=== PATIENT | female | born 1995 | race Two or more races ===

== ENCOUNTER 2017-02-21 07:00 | Inpatient (IN) | payer MEDICAID ==
[2017-02-21] MEDS ORDERED: Oxytocin 10 Units/1 ML SDV IM ONE (07:45)
[2017-02-21] MEDS ORDERED: Oxytocin 10 Units/1 ML SDV ONE (07:54)
[2017-02-21] MEDS ORDERED: Mineral Oil 10 ML Bottle ONE (07:54)
[2017-02-21] MEDS ORDERED: Lidocaine 1% 50 ML MDV ONE (07:55)
[2017-02-21] MEDS ORDERED: Naloxone 0.4 MG/ML SDV ONE (07:55)
[2017-02-21] MEDS ORDERED: Sodium Chloride 0.9% 10 ML Syringe FLUSH PRN (08:39)
[2017-02-21] MEDS ORDERED: Witch Hazel Medicated Pads 100/Jar TOP PRN (08:46)
[2017-02-21] MEDS ORDERED: Lanolin 100% Cream 40 GM Tube TOP PRN (08:46)
[2017-02-21] MEDS ORDERED: Acetaminophen/HYDROcodone 325-5 MG Tab PO PRN (08:46)
--- NOTE | 2017-02-21 08:58 | PCM.LDHP ---
L&D History of Present Illness - General Date of Service: 02/21/17 Admit Problem/Dx: Patient Status Order with Admit Dx/Problem 02/21/17 07:35 Patient Status [ADT] Routine 02/21/17 08:05 Patient Status [ADT] Routine Admission Diagnosis/Problem Admission Diagnosis/Problem Source of Information: Patient History Limitations: Reports: No limitations - History of Present Illness Improves with: Reports: None Worsens with: Reports: None Associated Symptoms: Reports: N - Related Data Allergies/Adverse Reactions: Allergies Allergy/AdvReac Type Severity Reaction Status Date / Time No Known Allergies Allergy Verified 02/20/17 13:01 Home Medications: Home Meds Acetaminophen [Tylenol] 650 mg PO Q6HR PRN 02/21/17 [History] H&P Review of Systems - Review of Systems: Review Of Systems: See Below General: Reports: fever, chills HEENT: Reports: no symptoms Pulmonary: Reports: No Symptoms Cardiovascular: Reports: no symptoms Gastrointestinal: Reports: Diarrhea Genitourinary: Reports: no symptoms Musculoskeletal: Reports: no symptoms Skin: Reports: no symptoms Psychiatric: Reports: no symptoms Neurological: Reports: No Symptoms Hematologic/Lymphatic: Reports: no symptoms Immunologic: Reports: no symptoms L&D Exam - Exam Exam: See Below - Vital Signs Vital Signs: Last Vital Signs Temp 37.1 C 02/21/17 07:09 Pulse 82 02/21/17 07:09 Resp 20 02/21/17 07:09 BP 123/72 02/21/17 07:09 Pulse Ox - OB Specific Contraction Intensity: Mild Presentation: both hand compound - Exam General: alert, oriented HEENT: PERRLA, Conjunctiva clear, EACs clear, EOMI, Hearing intact, Mucosa moist & pink, Nares patent, Normal nasal septum, Posterior pharynx clear, Pupils equal, Pupils reactive, TMs clear Neck: supple, trachea midline Lungs: Clear to auscultation, Normal respiratory effort Cardiovascular: regular rate, regular rhythm Abdomen: normal bowel sounds, soft Genitourinary: Normal external exam, Enlarged uterus Back Exam: normal inspection, full range of motion Extremities: normal inspection Skin: warm, dry, intact Neurological: cranial nerves intact, reflexes equal bilateral DTR: 2+: patella (L), patella (R) Psychiatric: alert, normal affect, normal mood - Patient Data Lab Results last 24 hrs: Laboratory Results - last 24 hr 02/21/17 Range/Units 07:42 WBC 7.9 (4.5-11.0) K/uL RBC 3.93 (3.30-5.50) M/uL Hgb 11.4 L (12.0-15.0) g/dL Hct 35.0 L (36.0-48.0) % MCV 89 (80-98) fL MCH 29 (27-31) pg MCHC 33 (32-36) % Plt Count 209 (150-400) K/uL Result Diagrams: 02/21/17 07:42 - Problem List (1) Fever SNOMED Code(s): 143058062 ICD Code: R50.9 - FEVER, UNSPECIFIED Status: Acute Current Visit: No Qualifiers: Fever type: fever during labor (maternal) Qualified Code(s): O75.2 - Pyrexia during labor, not elsewhere classified (2) Precipitous delivery SNOMED Code(s): 909245241 ICD Code: O62.3 - PRECIPITATE LABOR Status: Acute Current Visit: No (3) SNOMED Code(s): 12576209 ICD Code: Z33.1 - STATE, INCIDENTAL Status: Acute Current Visit : No Qualifiers: Weeks of gestation: 39 weeks Qualified Code(s): Z3A.39 - 39 weeks gestation of Problem List Initiated/Reviewed/Updated: Yes Orders Last 24hrs: Active Orders 24 hr Category Date Time Status Patient Status [ADT] Routine ADT 02/21/17 07:35 Active Patient Status [ADT] Routine ADT 02/21/17 08:05 Ordered Ambulate [RC] PER UNIT ROUTINE Care 02/21/17 08:46 Ordered Communication Order [RC] ASDIRECTED Care 02/21/17 08:39 Ordered Heart Tones [RC] PER UNIT ROUTINE Care 02/21/17 08:39 Ordered Intake and Output [RC] PRN Care 02/21/17 08:39 Ordered May Shower [RC] ASDIRECTED Care 02/21/17 08:46 Ordered Notify Provider Vital Signs [RC] PRN Care 02/21/17 07:35 Ordered Notify Provider [RC] PRN Care 02/21/17 08:39 Ordered OB Check [OM.PC] Click to Edit Care 02/21/17 07:09 Ordered VTE/DVT Education [RC] Click to Edit Care 02/21/17 08:48 Ordered Vital Signs [RC] PER UNIT ROUTINE Care 02/21/17 08:39 Ordered Vital Signs [RC] PFP Care 02/21/17 08:46 Ordered CBC WITH AUTO DIFF [HEME] Routine Lab 02/22/17 06:00 Ordered Acetaminophen [Tylenol] Med 02/21/17 08:46 Ordered 650 mg PO Q4H PRN Acetaminophen/HYDROcodone [[place] 325-5 MG] Med 02/21/17 08:46 Ordered 1 tab PO Q4H PRN Docusate Sodium [Colace] Med 02/21/17 08:46 Ordered 100 mg PO BID PRN Ibuprofen [Motrin] Med 02/21/17 08:46 Ordered 600 mg PO Q6H PRN Lanolin [Lansinoh HPA] Med 02/21/17 08:46 Ordered 1 gm TOP ASDIRECTED PRN Oxytocin [Pitocin] Med 02/21/17 07:45 Once 10 unit IM ONETIME ONE Sodium Chloride 0.9% [Saline Flush] Med 02/21/17 08:39 Ordered 10 ml FLUSH ASDIRECTED PRN [place] [Tucks] Med 02/21/17 08:46 Ordered 1 pad TOP ASDIRECTED PRN Assess Lochia [WOMSER] Per Unit Routine Oth 02/21/17 08:46 Ordered DVT/VTE Prophylaxis Reflex [OM.PC] Routine Oth 02/21/17 08:46 Ordered Ice Therapy [OM.PC] Per Unit Routine Oth 02/21/17 08:47 Ordered Perineal Care [OM.PC] Per Unit Routine Oth 02/21/17 08:47 Ordered Saline Lock Insert [OM.PC] Routine Oth 02/21/17 08:39 Ordered Sitz Bath [OM.PC] Per Unit Routine Oth 02/21/17 08:47 Ordered Resuscitation Status Routine Resus Stat 02/21/17 08:39 Ordered Medication Orders Acetaminophen (Tylenol) 650 mg PO Q4H PRN PRN Reason: mild pain or fever Hydrocodone Bitart/Acetaminophen ([place] 325-5 Mg) 1 tab PO Q4H PRN PRN Reason: Pain (moderate 4-6) Docusate Sodium (Colace) 100 mg PO BID PRN PRN Reason: Constipation Emollient Ointment (Lansinoh Hpa) 1 gm TOP ASDIRECTED PRN PRN Reason: Sore Nipples Ibuprofen (Motrin) 600 mg PO Q6H PRN PRN Reason: mild pain or fever Oxytocin (Pitocin) 10 unit IM ONETIME ONE Stop: 02/21/17 07:46 Sodium Chloride (Saline Flush) 10 ml FLUSH ASDIRECTED PRN PRN Reason: Keep Vein Open Witch [place] (Tucks) 1 pad TOP ASDIRECTED PRN PRN Reason: Hemorrhoids Assessment/Plan Comment:: 02/21/2017 21 yo G2 now P1 came in in active labor SVE by nurse was 7-8/100/+1 bulging bag GBS negative B positive Rubella Immune RPR nonreactive Hep B negative/HIV negative Pain well controlled with position and breathing FHT category one Wero strong and regular Plan- Continue to monitor labor and FHTs Plan for a vaginal delivery
--- NOTE | 2017-02-21 09:06 | PCM.DEL ---
L & D Note - General Info Date of Service: 02/21/17 Mother's Due Date: 02/28/17 - Delivery Note Labor: spontaneous Delivery Outcome: Livebirth Infant Delivery Method: Spontaneous Vaginal Delivery Infant Delivery Mode: Spontaneous Presentation: Right Occiput Posterior (ROP) (with both hands compound) Nuchal cord: none Anesthesia Type: None Episiotomy Type: None Laceration: none Placenta: intact, spontaneous Cord: 3 vessels Estimated blood loss: 250 Resuscitation needed: No : bulb syringe, stimulated, warmed, blanket used Second Stage Interventions: Reports: Encouragement Given, Pushing Effectively Delivery Comments (Free Text/Narrative):: 02/21/2017 21 yo G2 now P2 at 39 weeks gestation delivered a viable male @ 0805 normal spontaneous vaginal delivery in ROP with double hand compound presentation placed on prewarmed blanket on abdomen and noted to have a short umbilical cord, cord double clamped and cut Infant then stimulated, dried, and bulb suctioned APGARS-9/9/10 Weight 7lbs 1.1oz, Height 19.9inches Placenta spontaneously delivered intact, perineum intact-does have a skin tag noted on right side of labia No lacerations to cervix, vagina, rectum, or perineum EBL-250ml Mother stable in labor room with infant skin to skin and stable - General Info Date of Service: 02/21/17 Admission Dx/Problem (Free Text): Patient Status Order with Admit Dx/Problem 02/21/17 07:35 Patient Status [ADT] Routine 02/21/17 08:05 Patient Status [ADT] Routine Admission Diagnosis/Problem Admission Diagnosis/Problem Functional Status: Reports: pain controlled - Review of Systems General: Reports: Fever, Fatigue, Chills HEENT: Reports: no symptoms Pulmonary: Reports: no symptoms Cardiovascular: Reports: No Symptoms Gastrointestinal: Reports: Diarrhea Genitourinary: Reports: no symptoms Musculoskeletal: Reports: no symptoms Skin: Reports: no symptoms Neurological: Reports: No Symptoms Psychiatric: Reports: no symptoms - Patient Data Vitals - most recent: Last Vital Signs Temp 37.1 C 02/21/17 07:09 Pulse 82 02/21/17 07:09 Resp 20 02/21/17 07:09 BP 123/72 02/21/17 07:09 Pulse Ox Lab Results last 24 hrs: Laboratory Results - last 24 hr 02/21/17 Range/Units 07:42 WBC 7.9 (4.5-11.0) K/uL RBC 3.93 (3.30-5.50) M/uL Hgb 11.4 L (12.0-15.0) g/dL Hct 35.0 L (36.0-48.0) % MCV 89 (80-98) fL MCH 29 (27-31) pg MCHC 33 (32-36) % Plt Count 209 (150-400) K/uL Med Orders - Current: Current Medications Acetaminophen (Tylenol) 650 mg PO Q4H PRN PRN Reason: mild pain or fever Hydrocodone Bitart/Acetaminophen ([place] 325-5 Mg) 1 tab PO Q4H PRN PRN Reason: Pain (moderate 4-6) Docusate Sodium (Colace) 100 mg PO BID PRN PRN Reason: Constipation Emollient Ointment (Lansinoh Hpa) 0 gm TOP ASDIRECTED PRN PRN Reason: Sore Nipples Ibuprofen (Motrin) 600 mg PO Q6H PRN PRN Reason: mild pain or fever Sodium Chloride (Saline Flush) 10 ml FLUSH ASDIRECTED PRN PRN Reason: Keep Vein Open Witch [place] (Tucks) 1 pad TOP ASDIRECTED PRN PRN Reason: Hemorrhoids Discontinued Medications Oxytocin/Sodium Chloride (Pitocin In Ns 20 Units/1,000 Ml) Confirm Administered Dose 20 unit in 1,000 mls @ as directed .ROUTE .STK-MED ONE Stop: 02/21/17 07:48 Lidocaine HCl (Xylocaine 1%) Confirm Administered Dose 100 ml .ROUTE .STK-MED ONE Stop: 02/21/17 07:56 Mineral Oil (Muri-Lube) Confirm Administered Dose 10 ml .ROUTE .STK-MED ONE Stop: 02/21/17 07:55 Naloxone HCl (Narcan) Confirm Administered Dose 0.4 mg .ROUTE .STK-MED ONE Stop: 02/21/17 07:56 Oxytocin (Pitocin) Confirm Administered Dose 10 unit .ROUTE .STK-MED ONE Stop: 02/21/17 07:55 Oxytocin (Pitocin) 10 unit IM ONETIME ONE Stop: 02/21/17 07:46 - Exam General: alert, oriented HEENT: Pupils equal, Pupils reactive, EOMI, Mucous membr. moist/pink Neck: supple Lungs: Clear to auscultation, Normal respiratory effort Cardiovascular: Regular Rate, Regular Rhythm Abdomen: bowel sounds present, soft, no tenderness, no distension (Female) Exam: Normal external exam, Normal speculum exam, Normal bimanual exam, Enlarged uterus, Vaginal bleeding Back Exam: normal inspection, full range of motion Extremities: no edema Skin: warm, dry, intact Wound/Incisions: healing well Neurological: no new focal deficit Psy/Mental Status: alert, normal affect, normal mood - Problem List & Annotations (1) Fever SNOMED Code(s): 178588009 Code(s): R50.9 - FEVER, UNSPECIFIED Status: Acute Current Visit: No Qualifiers: Fever type: fever during labor (maternal) Qualified Code(s): O75.2 - Pyrexia during labor, not elsewhere classified (2) Precipitous delivery SNOMED Code(s): 334273458 Code(s): O62.3 - PRECIPITATE LABOR Status: Acute Current Visit: No (3) SNOMED Code(s): 76263669 Code(s): Z33.1 - STATE, INCIDENTAL Status: Acute Current Visit: No Qualifiers: Weeks of gestation: 39 weeks Qualified Code(s): Z3A.39 - 39 weeks gestation of - Problem List Review Problem List Initiated/Reviewed/Updated: Yes - My Orders Last 24 Hours: My Active Orders 02/21/17 07:09 OB Check [OM.PC] Click to Edit 02/21/17 07:35 Patient Status [ADT] Routine Notify Provider Vital Signs [RC] PRN 02/21/17 08:05 Patient Status [ADT] Routine 02/21/17 08:39 Communication Order [RC] ASDIRECTED Heart Tones [RC] PER UNIT ROUTINE Intake and Output [RC] PRN Notify Provider [RC] PRN Vital Signs [RC] PER UNIT ROUTINE Sodium Chloride 0.9% [Saline Flush] 10 ml FLUSH ASDIRECTED PRN Saline Lock Insert [OM.PC] Routine Resuscitation Status Routine 02/21/17 08:46 Ambulate [RC] PER UNIT ROUTINE May Shower [RC] ASDIRECTED Vital Signs [RC] PFP Acetaminophen [Tylenol] 650 mg PO Q4H PRN Acetaminophen/HYDROcodone [[place] 325-5 MG] 1 tab PO Q4H PRN Docusate Sodium [Colace] 100 mg PO BID PRN Ibuprofen [Motrin] 600 mg PO Q6H PRN Lanolin [Lansinoh HPA] 1 gm TOP ASDIRECTED PRN Witch Hannah [Tucks] 1 pad TOP ASDIRECTED PRN Assess Lochia [WOMSER] Per Unit Routine DVT/VTE Prophylaxis Reflex [OM.PC] Routine 02/21/17 08:47 Ice Therapy [OM.PC] Per Unit Routine Perineal Care [OM.PC] Per Unit Routine Sitz Bath [OM.PC] Per Unit Routine 02/21/17 08:48 VTE/DVT Education [RC] Click to Edit 02/22/17 06:00 CBC WITH AUTO DIFF [HEME] Routine - Assessment Assessment:: 02/21/2017 Normal Vaginal Delivery Fundus Firm Fever in labor and day before-Placenta Sent GBS negative - Plan Plan:: 02/21/2017 21 yo G2 now P1 came in in active labor SVE by nurse was 7-8/100/+1 bulging bag GBS negative B positive Rubella Immune RPR nonreactive Hep B negative/HIV negative Pain well controlled with position and breathing FHT category one Wero strong and regular Plan- Continue to monitor labor and FHTs Plan for a vaginal delivery 02/21/2017 Routine Cares Support and Encourage Placenta to lab Pain medication per patient request Plan discharge in 24-48 hours
[2017-02-21] MEDS: Ibuprofen 600 MG Tab PO PRN ×3 (09:15→22:05)
[2017-02-21] MEDS: Acetaminophen 325 MG Tab PO PRN ×2 (12:35→17:37)
[2017-02-22] MEDS: Acetaminophen 325 MG Tab PO PRN (03:32)
[2017-02-22] MEDS: Docusate Sodium 100 MG Cap PO PRN (09:23)
[2017-02-22] MEDS: Ibuprofen 600 MG Tab PO PRN ×2 (09:23→15:42)
--- NOTE | 2017-02-22 12:40 | PCM.PNPP ---
- General Info Date of Service: 02/22/17 Admission Dx/Problem (Free Text): Patient Status Order with Admit Dx/Problem 02/21/17 07:35 Patient Status [ADT] Routine 02/21/17 08:05 Patient Status [ADT] Routine Admission Diagnosis/Problem Admission Diagnosis/Problem Functional Status: Reports: pain controlled - Review of Systems General: Reports: No Symptoms HEENT: Reports: no symptoms Pulmonary: Reports: no symptoms Cardiovascular: Reports: No Symptoms Gastrointestinal: Reports: No symptoms Genitourinary: Reports: no symptoms Musculoskeletal: Reports: no symptoms Skin: Reports: no symptoms Neurological: Reports: No Symptoms Psychiatric: Reports: no symptoms - General Info Date of Service: 02/22/17 - Patient Data Vital Signs - most recent: Last Vital Signs Temp 36.3 C 02/22/17 03:00 Pulse 71 02/22/17 03:00 Resp 18 02/22/17 03:00 BP 92/58 L 02/22/17 03:00 Pulse Ox 97 02/22/17 03:00 I&O - last 24 hours: Intake & Output 02/21/17 02/22/17 02/22/17 22:59 06:59 14:59 Intake Total 1360 Balance 1360 Lab Results - last 24 hrs: Laboratory Results - last 24 hr 02/21/17 02/21/17 02/22/17 Range/Units 12:32 12:32 05:20 WBC 9.3 (4.5-11.0) K/uL RBC 3.43 (3.30-5.50) M/uL Hgb 10.1 L (12.0-15.0) g/dL Hct 30.9 L (36.0-48.0) % MCV 90 (80-98) fL MCH 29 (27-31) pg MCHC 33 (32-36) % Plt Count 190 (150-400) K/uL Neut % (Auto) 68 H (36-66) % Lymph % (Auto) 23 L (24-44) % [place] % (Auto) 8 H (2-6) % Eos % (Auto) 1 L (2-4) % Baso % (Auto) 0 (0-1) % Urine Color Yellow Urine Appearance Cloudy Urine pH 6.5 (4.5-8.0) Ur Specific [place] 1.005 L (1.008-1.030) Urine Protein 30 H (NEGATIVE) mg/dL Urine Glucose (UA) 100 H (NEGATIVE) mg/dL Urine Ketones Negative (NEGATIVE) mg/dL Urine Occult Blood Large (NEGATIVE) Urine Nitrite Negative (NEGATIVE) Urine Bilirubin Negative (NEGATIVE) Urine Urobilinogen Normal (NORMAL) mg/dL Ur Leukocyte Esterase Negative (NEGATIVE) Urine RBC >100 H (0-5) Urine WBC 0-5 (0-5) Ur Epithelial Cells Rare Amorphous Sediment Not seen Urine Bacteria Not seen Urine Mucus Not seen Urine Opiates Screen Negative (NEGATIVE) Ur Oxycodone Screen Negative (NEGATIVE) Urine Methadone Screen Negative (NEGATIVE) Ur Propoxyphene Screen Negative (NEGATIVE) Ur Barbiturates Screen Negative (NEGATIVE) Ur Tricyclics Screen Negative (NEGATIVE) Ur Phencyclidine Scrn Negative (NEGATIVE) Ur Amphetamine Screen Negative (NEGATIVE) U Methamphetamines Scrn Negative (NEGATIVE) Urine MDMA Screen Negative (NEGATIVE) U Benzodiazepines Scrn Negative (NEGATIVE) U Cocaine Metab Screen Negative (NEGATIVE) U Marijuana (THC) Screen Negative (NEGATIVE) Med Orders - Current: Current Medications Acetaminophen (Tylenol) 650 mg PO Q4H PRN PRN Reason: mild pain or fever Last Admin: 02/22/17 03:32 Dose: 650 mg Hydrocodone Bitart/Acetaminophen ([place] 325-5 Mg) 1 tab PO Q4H PRN PRN Reason: Pain (moderate 4-6) Docusate Sodium (Colace) 100 mg PO BID PRN PRN Reason: Constipation Last Admin: 02/22/17 09:23 Dose: 100 mg Emollient Ointment (Lansinoh Hpa) 0 gm TOP ASDIRECTED PRN PRN Reason: Sore Nipples Ibuprofen (Motrin) 600 mg PO Q6H PRN PRN Reason: mild pain or fever Last Admin: 02/22/17 09:23 Dose: 600 mg Sodium Chloride (Saline Flush) 10 ml FLUSH ASDIRECTED PRN PRN Reason: Keep Vein Open Witch [place] (Tucks) 1 pad TOP ASDIRECTED PRN PRN Reason: Hemorrhoids Last Admin: 02/21/17 12:36 Dose: 1 jar Discontinued Medications Oxytocin/Sodium Chloride (Pitocin In Ns 20 Units/1,000 Ml) Confirm Administered Dose 20 unit in 1,000 mls @ as directed .ROUTE .STK-MED ONE Stop: 02/21/17 07:48 Last Admin: 02/21/17 08:56 Dose: Not Given Lidocaine HCl (Xylocaine 1%) Confirm Administered Dose 100 ml .ROUTE .STK-MED ONE Stop: 02/21/17 07:56 Last Admin: 02/21/17 09:16 Dose: Not Given Mineral Oil (Muri-Lube) Confirm Administered Dose 10 ml .ROUTE .STK-MED ONE Stop: 02/21/17 07:55 Last Admin: 02/21/17 09:17 Dose: Not Given Naloxone HCl (Narcan) Confirm Administered Dose 0.4 mg .ROUTE .STK-MED ONE Stop: 02/21/17 07:56 Last Admin: 02/21/17 09:16 Dose: Not Given Oxytocin (Pitocin) Confirm Administered Dose 10 unit .ROUTE .STK-MED ONE Stop: 02/21/17 07:55 Last Admin: 02/21/17 09:16 Dose: Not Given Oxytocin (Pitocin) 10 unit IM ONETIME ONE Stop: 02/21/17 07:46 Last Admin: 02/21/17 09:14 Dose: 10 unit - Infant Interaction Disposition, : [place] at Bedside Infant Interaction: Holding Infant Infant Feeding: Breastfed ; Nursed Well Support Person: Mother - Recovery Exam Fundal Tone: Firm Fundal Level: 1 Fingerbreadths Below Umbilicus Fundal Placement: Midline Lochia Amount: Moderate Lochia Color: Rubra/Red Perineum Description: Intact, Minimal Bruising/Swelling Episiotomy/Laceration: None Bladder Status: Voiding Urinary Elimination: Voided - Exam General: alert, oriented HEENT: Pupils equal Neck: supple Lungs: Clear to auscultation, Normal respiratory effort Cardiovascular: Regular Rate, Regular Rhythm Abdomen: bowel sounds present, soft, no tenderness, no distension Extremities: no edema Skin: warm, dry, intact Neurological: no new focal deficit Psy/Mental Status: alert, normal affect, normal mood - Problem List & Annotations (1) Fever SNOMED Code(s): 297509096 Code(s): R50.9 - FEVER, UNSPECIFIED Status: Acute Current Visit: No Qualifiers: Fever type: fever during labor (maternal) Qualified Code(s): O75.2 - Pyrexia during labor, not elsewhere classified (2) Precipitous delivery SNOMED Code(s): 172695536 Code(s): O62.3 - PRECIPITATE LABOR Status: Acute Current Visit: No (3) SNOMED Code(s): 90070497 Code(s): Z33.1 - STATE, INCIDENTAL Status: Resolved Current Visit: No Qualifiers: Weeks of gestation: 39 weeks Qualified Code(s): Z3A.39 - 39 weeks gestation of - Problem List Review Problem List Initiated/Reviewed/Updated: Yes - Assessment Assessment:: 02/21/2017 Normal Vaginal Delivery Fundus Firm Fever in labor and day before-Placenta Sent GBS negative 02/22/2017 Normal Mother Fundus Firm, Bleeding decreasing Had fever in labor and day before-afebrile today Voiding and passing gas - Plan Plan:: 02/21/2017 21 yo G2 now P1 came in in active labor SVE by nurse was 7-8/100/+1 bulging bag GBS negative B positive Rubella Immune RPR nonreactive Hep B negative/HIV negative Pain well controlled with position and breathing FHT category one Wero strong and regular Plan- Continue to monitor labor and FHTs Plan for a vaginal delivery 02/21/2017 Routine Cares Support and Encourage Placenta to lab Pain medication per patient request Plan discharge in 24-48 hours 02/22/2017 Continue Routine Cares Continue to support and encourage Plan discharge home tomorrow
[2017-02-23] MEDS: Ibuprofen 600 MG Tab PO PRN (07:52)
[2017-02-23] MEDS: Docusate Sodium 100 MG Cap PO PRN (07:53)
[2017-02-23 07:59] VITALS: BP 96/69
--- NOTE | 2017-02-23 09:51 | PCM.PNPP ---
- General Info Date of Service: 02/23/17 Admission Dx/Problem (Free Text): Patient Status Order with Admit Dx/Problem 02/21/17 07:35 Patient Status [ADT] Routine 02/21/17 08:05 Patient Status [ADT] Routine Admission Diagnosis/Problem Admission Diagnosis/Problem Functional Status: Reports: pain controlled - Review of Systems General: Reports: No Symptoms (fever has subsided) HEENT: Reports: no symptoms Pulmonary: Reports: no symptoms Cardiovascular: Reports: No Symptoms Gastrointestinal: Reports: No symptoms Genitourinary: Reports: no symptoms Musculoskeletal: Reports: no symptoms Skin: Reports: no symptoms Neurological: Reports: No Symptoms Psychiatric: Reports: no symptoms - Patient Data Vital Signs - most recent: Last Vital Signs Temp 98.0 F 02/23/17 07:54 Pulse 69 02/23/17 07:54 Resp 18 02/23/17 07:54 BP 96/69 02/23/17 07:54 Pulse Ox 97 02/23/17 07:54 Weight - most recent: 142 lb 10.225 oz I&O - last 24 hours: Intake & Output 02/22/17 02/23/17 02/23/17 22:59 06:59 14:59 Intake Total 840 Balance 840 Med Orders - Current: Current Medications Acetaminophen (Tylenol) 650 mg PO Q4H PRN PRN Reason: mild pain or fever Last Admin: 02/22/17 03:32 Dose: 650 mg Hydrocodone Bitart/Acetaminophen ([place] 325-5 Mg) 1 tab PO Q4H PRN PRN Reason: Pain (moderate 4-6) Docusate Sodium (Colace) 100 mg PO BID PRN PRN Reason: Constipation Last Admin: 02/23/17 07:53 Dose: 100 mg Emollient Ointment (Lansinoh Hpa) 0 gm TOP ASDIRECTED PRN PRN Reason: Sore Nipples Ibuprofen (Motrin) 600 mg PO Q6H PRN PRN Reason: mild pain or fever Last Admin: 02/23/17 07:52 Dose: 600 mg Sodium Chloride (Saline Flush) 10 ml FLUSH ASDIRECTED PRN PRN Reason: Keep Vein Open Witch Hannah (Tucks) 1 pad TOP ASDIRECTED PRN PRN Reason: Hemorrhoids Last Admin: 02/21/17 12:36 Dose: 1 jar Discontinued Medications Oxytocin/Sodium Chloride (Pitocin In Ns 20 Units/1,000 Ml) Confirm Administered Dose 20 unit in 1,000 mls @ as directed .ROUTE .STK-MED ONE Stop: 02/21/17 07:48 Last Admin: 02/21/17 08:56 Dose: Not Given Lidocaine HCl (Xylocaine 1%) Confirm Administered Dose 100 ml .ROUTE .STK-MED ONE Stop: 02/21/17 07:56 Last Admin: 02/21/17 09:16 Dose: Not Given Mineral Oil (Muri-Lube) Confirm Administered Dose 10 ml .ROUTE .STK-MED ONE Stop: 02/21/17 07:55 Last Admin: 02/21/17 09:17 Dose: Not Given Naloxone HCl (Narcan) Confirm Administered Dose 0.4 mg .ROUTE .STK-MED ONE Stop: 02/21/17 07:56 Last Admin: 02/21/17 09:16 Dose: Not Given Oxytocin (Pitocin) Confirm Administered Dose 10 unit .ROUTE .STK-MED ONE Stop: 02/21/17 07:55 Last Admin: 02/21/17 09:16 Dose: Not Given Oxytocin (Pitocin) 10 unit IM ONETIME ONE Stop: 02/21/17 07:46 Last Admin: 02/21/17 09:14 Dose: 10 unit - Infant Interaction Infant Disposition, : [place] at Bedside Infant Interaction: Holding Infant, Not Interacting Feeding: Breastfed Infant; Nursed Well Support Person: Mother - Recovery Exam Fundal Tone: Firm Fundal Level: 1 Fingerbreadths Below Umbilicus Fundal Placement: Midline Lochia Amount: Small Lochia Color: Rubra/Red Perineum Description: Other (see below) Other Perinuem Description: she has visitors in room Episiotomy/Laceration: None Bladder Status: Voiding Urinary Elimination: Voided - Exam General: alert, oriented HEENT: Pupils equal Neck: supple Lungs: Clear to auscultation, Normal respiratory effort Cardiovascular: Regular Rate, Regular Rhythm Abdomen: bowel sounds present, soft, no tenderness, no distension Extremities: no edema Skin: warm, dry, intact Wound/Incisions: healing well Neurological: no new focal deficit Psy/Mental Status: alert, normal affect, normal mood - Problem List & Annotations (1) (infant) SNOMED Code(s): 835166565 Code(s): Z78.9 - OTHER SPECIFIED HEALTH STATUS Status: Acute Current Visit: No (2) Normal vaginal delivery SNOMED Code(s): 45295669 Code(s): O80 - ENCOUNTER FOR FULL-TERM UNCOMPLICATED DELIVERY Status: Acute Current Visit: No (3) Precipitous delivery SNOMED Code(s): 526813239 Code(s): O62.3 - PRECIPITATE LABOR Status: Acute Current Visit: No - Problem List Review Problem List Initiated/Reviewed/Updated: Yes - Assessment Assessment:: 02/21/2017 Normal Vaginal Delivery Fundus Firm Fever in labor and day before-Placenta Sent GBS negative 02/22/2017 Normal Mother Fundus Firm, Bleeding decreasing Had fever in labor and day before-afebrile today Voiding and passing gas 02/23/17 normal post fever resolved ready to go home HGB 10.1 needs vitamin - Plan Plan:: 02/21/2017 21 yo G2 now P1 came in in active labor SVE by nurse was 7-8/100/+1 bulging bag GBS negative B positive Rubella Immune RPR nonreactive Hep B negative/HIV negative Pain well controlled with position and breathing FHT category one Wero strong and regular Plan- Continue to monitor labor and FHTs Plan for a vaginal delivery 02/21/2017 Routine Cares Support and Encourage Placenta to lab Pain medication per patient request Plan discharge in 24-48 hours 02/22/2017 Continue Routine Cares Continue to support and encourage Plan discharge home tomorrow 02/23/17 discharge today see me in 6 weeks for a post visit
== END 2017-02-23 11:15 | disposition home or self-care (01) | DRG 774 ==
LOC: JP.OBCHECK 07:00 → JP.OB 07:40 → JP.MS 08:05 → JP.OB 08:05 → OBSVTOIN 08:05
PROVIDERS: ADMIT Advanced Practice Midwife; ATTEND Advanced Practice Midwife
PROC: 10E0XZZ Delivery of Products of Conception, External Approach (ICD-10-PCS; principal; 2017-02-21)
DX: O62.3 Precipitate labor (principal); O75.2 Pyrexia during labor, not elsewhere classified; Z3A.39 39 weeks gestation of pregnancy; Z37.0 Single live birth; O32.6XX0 Maternal care for compound presentation, not applicable or unspecified
CPT/HCPCS: 36415; 80305; 81001; 85025; 85027; 88307; 99211; A9270-GY; J2590

== ENCOUNTER 2018-04-11 14:12 | Emergency (ER) | payer MEDICAID ==
[2018-04-11 15:06] VITALS: BP 115/66
[2018-04-11] MEDS ORDERED: Sodium Chloride 0.9% 10 ML Syringe FLUSH PRN (15:12)
[2018-04-11] MEDS ORDERED: Ketorolac 30 MG/ML SDV IVPUSH ONE ×2 (15:43→16:02)
[2018-04-11] MEDS ORDERED: Acetaminophen 325 MG Tab, 50 Tab Bulk Bottle PO ONE (16:03)
--- NOTE | 2018-04-11 16:12 | EDM.PDOC ---
ED HPI GENERAL MEDICAL PROBLEM - General Chief Complaint: Abdominal Pain Stated Complaint: PAIN ON RIGHT SIDE Time Seen by Provider: 04/11/18 15:45 Source of Information: Reports: Patient, Old Records, RN History Limitations: Reports: Language Barrier (language interpretor not available. Family or friend here with OK Khmer skills.) - History of Present Illness INITIAL COMMENTS - FREE TEXT/NARRATIVE: 22 yo female here with several days of RLQ abdominal pain. No fever or GI sx's. No missed menses. No urinary sx's. 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: Other (see below) (none) - Related Data Allergies Allergy/AdvReac Type Severity Reaction Status Date / Time No Known Allergies Allergy Verified 02/20/17 13:01 Home Meds: Home Meds Acetaminophen [Tylenol] 650 mg PO Q6HR PRN 02/21/17 [History] Past Medical History - Past Health History Medical/Surgical History: Denies Medical/Surgical History Social & Family History - Family History Family Medical History: Unobtainable - Tobacco Use Smoking Status *Q: Never Smoker - Caffeine Use Caffeine Use: Reports: None - Recreational Drug Use Recreational Drug Use: No ED ROS GENERAL - Review of Systems Review Of Systems: See Below Constitutional: Reports: No Symptoms HEENT: Reports: No Symptoms Respiratory: Reports: No Symptoms Cardiovascular: Reports: No Symptoms GI/Abdominal: Reports: Abdominal Pain (RLQ). Denies: Anorexia, Black Stool, Bloody Stool, Constipation, Diarrhea, Distension, Nausea, Vomiting : Reports: No Symptoms Musculoskeletal: Reports: No Symptoms Skin: Reports: No Symptoms Neurological: Reports: No Symptoms ED EXAM, GI/ABD - Physical Exam Exam: See Below Exam Limited By: No Limitations General Appearance: Alert, WD/WN, No Apparent Distress Eyes: Bilateral: Normal Appearance, EOMI Ears: Normal External Exam, Normal Canal, Hearing Grossly Normal, Normal TMs Nose: Normal Inspection, Normal Mucosa, No Blood Throat/Mouth: Normal Inspection, Normal Lips, Normal Oropharynx, Normal Voice, No Airway Compromise Head: Atraumatic, Normocephalic Neck: Normal Inspection, Supple, Non-Tender Respiratory/Chest: No Respiratory Distress, Lungs Clear, Normal Breath Sounds, No Accessory Muscle Use Cardiovascular: Regular Rate, Rhythm GI/Abdominal Exam: Normal Bowel Sounds, Soft, No Distention, Guarding (mild), Tender (RLQ). No: Non-Tender, Rigid, Rebound Back Exam: Normal Inspection. No: CVA Tenderness (R), CVA Tenderness (L) Extremities: Normal Inspection, Normal Range of Motion, Non-Tender Neurological: Alert, Oriented, CN II-XII Intact, Normal Cognition, No Motor/ Sensory Deficits Psychiatric: Normal Affect, Normal Mood Skin Exam: Warm, Dry, Intact, Normal Color, No Rash Lymphatic: No Adenopathy Course - Vital Signs Last Recorded V/S: Last Vital Signs Temp 36.6 C 04/11/18 15:10 Pulse 91 04/11/18 15:10 Resp 14 04/11/18 15:10 BP 115/66 04/11/18 15:10 Pulse Ox 100 04/11/18 15:10 - Orders/Labs/Meds Orders: Active Orders 24 hr Category Date Time Status HCG QUALITATIVE,URINE [URCHEM] Stat Lab 04/11/18 15:33 Ordered UA W/MICROSCOPIC [URIN] Stat Lab 04/11/18 15:33 Ordered Sodium Chloride 0.9% [Saline Flush] Med 04/11/18 15:12 Active 10 ml FLUSH ASDIRECTED PRN Saline Lock Insert [OM.PC] Routine Oth 04/11/18 15:12 Ordered Medication Orders Sodium Chloride (Saline Flush) 10 ml FLUSH ASDIRECTED PRN PRN Reason: Keep Vein Open Last Admin: 04/11/18 15:31 Dose: 10 ml Labs: Laboratory Tests 04/11/18 04/11/18 04/11/18 Range/Units 15:22 15:22 15:33 WBC 8.8 (4.5-11.0) K/uL RBC 4.59 (3.30-5.50) M/uL Hgb 13.1 D (12.0-15.0) g/dL Hct 38.9 (36.0-48.0) % MCV 85 (80-98) fL MCH 29 (27-31) pg MCHC 34 (32-36) % Plt Count 284 (150-400) K/uL Sodium 140 (140-148) mmol/L Potassium 3.7 (3.6-5.2) mmol/L Chloride 103 (100-108) mmol/L Carbon Dioxide 28 (21-32) mmol/L Anion Gap 8.6 (5.0-14.0) mmol/L BUN 15 D (7-18) mg/dL Creatinine 1.0 D (0.6-1.0) mg/dL Est Cr Clr Drug Dosing 62.85 mL/min Estimated GFR (MDRD) > 60 (>60) Glucose 86 (74-106) mg/dL Calcium 9.1 (8.5-10.1) mg/dL Urine Color Yellow Urine Appearance Clear Urine pH 5.0 (4.5-8.0) Ur Specific Luther 1.010 (1.008-1.030) Urine Protein Negative (NEGATIVE) mg/dL Urine Glucose (UA) Normal (NEGATIVE) mg/dL Urine Ketones Negative (NEGATIVE) mg/dL Urine Occult Blood Large (NEGATIVE) Urine Nitrite Negative (NEGATIVE) Urine Bilirubin Negative (NEGATIVE) Urine Urobilinogen Normal (NORMAL) mg/dL Ur Leukocyte Esterase Negative (NEGATIVE) Urine RBC 0-5 (0-5) Urine WBC 0-5 (0-5) Ur Epithelial Cells Few Amorphous Sediment Not seen Urine Bacteria Few Urine Mucus Not seen Urine HCG, Qual 04/11/18 Range/Units 15:33 WBC (4.5-11.0) K/uL RBC (3.30-5.50) M/uL Hgb (12.0-15.0) g/dL Hct (36.0-48.0) % MCV (80-98) fL MCH (27-31) pg MCHC (32-36) % Plt Count (150-400) K/uL Sodium (140-148) mmol/L Potassium (3.6-5.2) mmol/L Chloride (100-108) mmol/L Carbon Dioxide (21-32) mmol/L Anion Gap (5.0-14.0) mmol/L BUN (7-18) mg/dL Creatinine (0.6-1.0) mg/dL Est Cr Clr Drug Dosing mL/min Estimated GFR (MDRD) (>60) Glucose (74-106) mg/dL Calcium (8.5-10.1) mg/dL Urine Color Urine Appearance Urine pH (4.5-8.0) Ur Specific Luther (1.008-1.030) Urine Protein (NEGATIVE) mg/dL Urine Glucose (UA) (NEGATIVE) mg/dL Urine Ketones (NEGATIVE) mg/dL Urine Occult Blood (NEGATIVE) Urine Nitrite (NEGATIVE) Urine Bilirubin (NEGATIVE) Urine Urobilinogen (NORMAL) mg/dL Ur Leukocyte Esterase (NEGATIVE) Urine RBC (0-5) Urine WBC (0-5) Ur Epithelial Cells Amorphous Sediment Urine Bacteria Urine Mucus Urine HCG, Qual Negative Meds: Medications Generic Name Dose Route Start Last Admin Trade Name Freq PRN Reason Stop Dose Admin Sodium Chloride 10 ml 04/11/18 15:12 04/11/18 15:31 Saline Flush FLUSH 10 ml ASDIRECTED PRN Administration Keep Vein Open Discontinued Medications Generic Name Dose Route Start Last Admin Trade Name Freconsuelo PRN Reason Stop Dose Admin Acetaminophen 650 mg 04/11/18 16:03 Tylenol Bulk Bottle PO 04/11/18 16:04 NOW ONE Ketorolac Tromethamine 30 mg 04/11/18 15:43 Toradol IVPUSH 04/11/18 15:44 ONETIME ONE Ketorolac Tromethamine 30 mg 04/11/18 16:02 Toradol IVPUSH 04/11/18 16:03 ONETIME ONE Departure - Departure Time of Disposition: 16:12 Disposition: Home, Self-Care 01 Condition: Good Clinical Impression: Ovarian cyst Qualifiers: Laterality: right Qualified Code(s): N83.201 - Unspecified ovarian cyst, right side - Discharge Information Referrals: PCP,None [Primary Care Provider] - - My Orders Last 24 Hours: My Active Orders 04/11/18 15:12 Sodium Chloride 0.9% [Saline Flush] 10 ml FLUSH ASDIRECTED PRN Saline Lock Insert [OM.PC] Routine 04/11/18 15:33 HCG QUALITATIVE,URINE [URCHEM] Stat UA W/MICROSCOPIC [URIN] Stat - Assessment/Plan Last 24 Hours: My Active Orders 04/11/18 15:12 Sodium Chloride 0.9% [Saline Flush] 10 ml FLUSH ASDIRECTED PRN Saline Lock Insert [OM.PC] Routine 04/11/18 15:33 HCG QUALITATIVE,URINE [URCHEM] Stat UA W/MICROSCOPIC [URIN] Stat
[2018-04-11] MEDS ORDERED: Acetaminophen 325 MG Tab PO ONE (16:13)
== END 2018-04-11 16:46 | disposition home or self-care (01) ==
LOC: JP.ED 14:12
DX: N83.201 Unspecified ovarian cyst, right side (principal)
CPT/HCPCS: 36415; 80048; 81001; 81025; 85027; 96374; 99284; A9270; J1885; J7050

== ENCOUNTER 2020-09-08 03:01 | Emergency (ER) | payer BC ==
[2020-09-08 03:28] VITALS: BP 101/53; PULSE 81
--- NOTE | 2020-09-08 03:58 | EDM.PDOC ---
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 The patient reports that she is 13 weeks . She is -0-0-2. She denies any cramping or back pain. She does state that she has passed some small clots in her underwear and when she wiped with tissue. She denies any fever, chills, nausea or vomiting, diarrhea or constipation. She has had no urinary symptoms. Onset: Sudden Onset Date: 09/08/20 Improves with: Reports: None Worsens with: Reports: None Associated Symptoms: Reports: No Other Symptoms - Related Data Allergies Allergy/AdvReac Type Severity Reaction Status Date / Time No Known Allergies Allergy Verified 09/08/20 03:29 Home Meds: Home Meds Acetaminophen [Tylenol] 650 mg PO Q6HR PRN 02/21/17 [History] Past Medical History - Past Health History Medical/Surgical History: Denies Medical/Surgical History STRATEGIC PLANNING MANAGER History: Reports: Other STRATEGIC PLANNING MANAGER History: precipitous delivery Social & Family History - Family History Family Medical History: Unobtainable - Tobacco Use Tobacco Use Status *Q: Never Tobacco User Second Hand Smoke Exposure: No - Caffeine Use Caffeine Use: Reports: None - Recreational Drug Use Recreational Drug Use: No ED ROS GENERAL - Review of Systems Review Of Systems: See Below Constitutional: Reports: No Symptoms HEENT: Reports: No Symptoms Respiratory: Reports: No Symptoms Cardiovascular: Reports: No Symptoms Endocrine: Reports: No Symptoms GI/Abdominal: Reports: No Symptoms : Reports: Other (General spotting in ) Musculoskeletal: Reports: No Symptoms Skin: Reports: No Symptoms Neurological: Reports: No Symptoms Psychiatric: Reports: No Symptoms Hematologic/Lymphatic: Reports: No Symptoms Immunologic: Reports: No Symptoms ED EXAM - Physical Exam Exam: See Below Exam Limited By: No Limitations General Appearance: Alert, WD/WN, No Apparent Distress Respiratory/Chest: No Respiratory Distress, Lungs Clear, Normal Breath Sounds Cardiovascular: Normal Peripheral Pulses, Regular Rate, Rhythm, No Edema, No Gallop GI/Abdominal Exam: Normal Bowel Sounds, Soft, Non-Tender, No Organomegaly (I suppose I should have listened alongside listening) Neurological: Alert, Oriented, CN II-XII Intact, Normal Cognition, No Motor/Sensory Deficits Psychiatric: Normal Affect, Normal Mood Skin Exam: Warm ED Add Procedures - Additional/Other Procedure(s) Procedure(s) (Free Text): I performed a limited bedside OB ultrasound to evaluate for intrauterine . Patient had a single intrauterine with a heart rate of 156 bpm by M-mode. The biparietal diameter measures out 13 weeks 6 days. There is a small subchorionic hemorrhage visualized in the fundus of the uterus. The placenta is grade 1 and posterior. It does not appear to be overriding the cervix. There is adequate amniotic fluid. Course - Vital Signs Last Recorded V/S: Last Vital Signs Temp Pulse 81 09/08/20 03:36 Resp 16 09/08/20 03:36 BP 101/53 L 09/08/20 03:36 Pulse Ox 99 09/08/20 03:36 - Re-Assessments/Exams Free Text/Narrative Re-Assessment/Exam: 09/08/20 04:02 patient's chart was reviewed and it appears that her blood type is B+ and that she has not received RhoGam in the past. Departure - Departure Time of Disposition: 03:53 Disposition: Home, Self-Care 01 Condition: Good Clinical Impression: Intrauterine , First trimester bleeding - Discharge Information *PRESCRIPTION DRUG MONITORING PROGRAM REVIEWED*: Not Applicable *COPY OF PRESCRIPTION DRUG MONITORING REPORT IN PATIENT DANG: Not Applicable Instructions: Vaginal Bleeding During , First Trimester, First Trimester of , [id number] Referrals: Alejandra Alvarado CNM [Primary Care Provider] - Care Plan Goals: Please return to the ED if your bleeding becomes much heavier or you start to develop cramping. Sepsis Event Note (ED) - Evaluation Sepsis Screening Result: No Definite Risk - Focused Exam Vital Signs: Vital Signs Pulse Resp BP Pulse Ox 09/08/20 03:36 81 16 101/53 L 99 09/08/20 03:26 81 16 101/53 L 99 - Problem List & Annotations (1) First trimester bleeding SNOMED Code(s): 28304592, 07167299 Code(s): O20.9 - HEMORRHAGE IN EARLY , UNSPECIFIED Status: Acute Priority: Medium Current Visit: Yes (2) Intrauterine SNOMED Code(s): 66734237 Code(s): Z34.90 - ENCNTR FOR SUPRVSN OF NORMAL , UNSP, UNSP TRIMESTER Status: Acute Priority: Medium Current Visit: Yes - Assessment/Plan Plan: Please follow-up with your STRATEGIC PLANNING MANAGER as routine. Return to the ED if any significant increase in bleeding or cramping.
== END 2020-09-08 04:06 | disposition home or self-care (01) ==
LOC: JP.ED 03:01
DX: O20.9 Hemorrhage in early pregnancy, unspecified (principal); Z3A.13 13 weeks gestation of pregnancy
CPT/HCPCS: 99284-25

== ENCOUNTER 2022-10-08 07:25 | Emergency (ER) | payer BC ==
[2022-10-08 07:42] VITALS: BP 116/59; PULSE 69
[2022-10-08] MEDS ORDERED: Metoclopramide 10 MG/2 ML SDV IVPUSH ONE (08:03)
[2022-10-08] MEDS ORDERED: Sodium Chloride 0.9% 10 ML Syringe FLUSH PRN (08:03)
[2022-10-08] MEDS ORDERED: Ketorolac 30 MG/ML SDV IVPUSH ONE (08:38)
== END 2022-10-08 10:15 | disposition home or self-care (01) ==
LOC: JP.ED 07:25
DX: R51.9 Headache, unspecified (principal); R41.3 Other amnesia
CPT/HCPCS: 36415; 70450; 80048; 83605; 85025; 85379; 85651; 96374; 96375; 99284; J1885; J2765; J3490